=== PATIENT | female | born 1940 | race Hispanic/Latino ===

== ENCOUNTER 2024-07-19 12:55 | Outpatient (CLI) | payer OTHER | END 2024-07-19 12:56 | disposition home or self-care (01) | LOC: NAV RAD 12:55 | PROVIDERS: ATTEND Nurse Practitioner Family | DX: S49.101A Unspecified physeal fracture of lower end of humerus, right arm, initial encounter for closed fracture (principal); S42.211A Unspecified displaced fracture of surgical neck of right humerus, initial encounter for closed fracture ==